=== PATIENT | female | born 1990 | race Caucasian/White ===

== ENCOUNTER 2019-02-17 19:56 | Inpatient (IN) | payer OTHER ==
[2019-02-17] MEDS ORDERED: PROMETHAZINE HCL 25 MG/1 ML VIAL IVPUSH PRN (20:21)
[2019-02-17] MEDS ORDERED: BUTORPHANOL TARTRATE 1 MG/ML VIAL IVPB ONE (20:21)
[2019-02-17] MEDS ORDERED: AMPICILLIN - 2 GM in SODIUM CHLORIDE 100 ML IVPB ONE (20:21)
--- NOTE | 2019-02-17 20:27 | HP ---
Past Medical History - Admission Chief Complaint: IOL for postdates History of Present Illness: 29yo @ 41.0wks here for IOL for postdates Mild ctx. No VB/LOF. +FM Of note, sono 02/10 placed EFW at 8lbs 13oz, pt declined elective PLTCS PNC @ [address] Preg c/b obesity, GBS positive. History Source: Patient - Past Medical History ...: 1 ... Weeks Gestation by Dates: 41.0 ...EDC by Dates: 02/09/19 - Past Surgical History Past Surgical History: Yes: None Hx Myomectomy: No Hx Transabdominal Cerclage: No - Smoking History Smoking history: Never smoked - Alcohol/Substance Use Hx Alcohol Use: Yes (SOCIAL) History of Substance Use: reports: None - Social History Usual Living Arrangement: Yes: With Significant Other Do you think of yourself as: Straight/Heterosexual ADL: Independent History of Recent Travel: No Home Medications - Allergies Allergies/Adverse Reactions: Allergies Allergy/AdvReac Type Severity Reaction Status Date / Time No Known Allergies Allergy Verified 02/17/19 21:04 - Home Medications Home Medications: Ambulatory Orders Ferrous Sulfate 325 mg PO DAILY 02/17/19 Vitamins (Sjr) - 1 tab PO DAILY 02/17/19 Review of Systems - Review of Systems Constitutional: denies: No Symptoms, Chills, Diaphoresis, Fever, Lethargy, Loss of Appetite, Malaise, Night Sweats, Unintentional Wgt. Loss, Weakness, Other Cardiovascular: denies: No Symptoms, Chest Pain, Edema, Palpitations, Shortness of Breath, Other Respiratory: denies: No Symptoms, Cough, Exercise Intolerance, Hemoptysis, Orthopnea, PND, Snoring, SOB, SOB on Exertion, Wheezing, Other Gastrointestinal: denies: No Symptoms, Abdominal Pain, Bloating, Constipation, Diarrhea, Dysphagia, Indigestion, Melena, Nausea, Rectal Bleeding, Vomiting, Vomiting Blood, Other Physical Exam - Maternity Constitutional: Yes: Well Nourished, No Distress, Calm - Abdominal Exam/OB Number of Fetuses: Single Presentation: Vertex Contractions: Yes Regularity: Irregular Intensity: Unaware Monitor Mode: External Heart Rate Location: [facility] Category: I Accelerations: Non-Uniform Decelerations: Late - Vaginal Exam/OB Vaginal Bleediing: No Speculum Exam: No Dilatation (cm): 1 Effacement (%): 0 Amniotic Membrane Status: Intact Presentation: Vertex/Position Station: -3 Assessment/Plan 29yo @ 41.0wks by LMP/sono here for IOL for postdates Admit to L&D NPO, IVFs Cat II tracing with recurrent late decelerations Patient previously counseled regarding low likelihood of successful given suspected EFW ~9lbs, short stature and obesity, but still desired trial of labor. Recommended delivery, risks/benefits discussed. All questions answered , consent signed Benny Issa MD
[2019-02-17] MEDS ORDERED: ELECTROLYTE-148 SOLN 1,000 ML IV SCH ×2 (20:30→21:05)
[2019-02-17] MEDS ORDERED: ELECTROLYTE-148 SOLN 500 ML IV ONE (20:35)
[2019-02-17] MEDS ORDERED: CITRIC ACID/SODIUM CITRATE 30 ML UNIT-DOSE CUP PO ONE (20:35)
[2019-02-17 20:56] LABS: BASO % 0.5 % (0-2.0); EOS % 0.7 % (0-4.5); HEMATOCRIT 39.6 % (32.4-45.2); HEMOGLOBIN 14.3 GM/dL (10.7-15.3); LYMPH % 18.4 % (8-40); MCH 34.7 pg (25.7-33.7); MCHC 36.1 g/dl (32.0-36.0); MEAN CELL VOLUME 96.2 fl (80-96); MONO % 8.8 % (3.8-10.2); NEUT % 71.6 % (42.8-82.8); PLATELET COUNT 294 K/MM3 (134-434); RBC 4.12 M/mm3 (3.60-5.2); RDW 13.3 % (11.6-15.6); WHITE BLOOD COUNT 12.6 K/mm3 (4.0-10.0)
[2019-02-17 21:08] LABS: INR 0.95 (0.83-1.09); PROTHROMBIN TIME (PATIENT) 11.2 SEC (9.7-13.0)
[2019-02-17 21:10] LABS: ACTIVATED PTT 27.8 SECONDS (25.2-36.5)
[2019-02-17 21:13] LABS: CREATININE 0.5 mg/dL (0.55-1.3); POTASSIUM 4.1 mmol/L (3.5-5.1)
[2019-02-17 21:19] VITALS: BMI 44.3
[2019-02-17] MEDS ORDERED: ONDANSETRON 4 MG/2 ML VIAL IVPUSH PRN (21:35)
[2019-02-17] MEDS ORDERED: morphine SULFATE/PF 0.5 MG/ML (2cc Syringe - QUVA) ONE (21:45)
[2019-02-17] MEDS ORDERED: ePHEDrine SULFATE 50 MG/1 ML AMPULE ONE (22:13)
[2019-02-17] MEDS ORDERED: ceFAZolin SODIUM 1 GM VIAL ONE (22:13)
[2019-02-17] MEDS ORDERED: OXYTOCIN 10 UNITS/ML VIAL ONE (22:18)
[2019-02-17] MEDS: OXYTOCIN 20 UNITS in 0.9% NS 20 UNIT/1,000 ML INFUS.BAG IV SCH (22:20)
[2019-02-17] MEDS ORDERED: METHYLERGONOVINE MALEATE 0.2 MG/1 ML AMP IM PRN (22:53)
[2019-02-17] MEDS ORDERED: oxyCODONE HCL 5 MG TABLET PO PRN (22:53)
--- NOTE | 2019-02-17 22:53 | OP ---
Operative Note - Note: Operative Date: 02/17/19 Operation: Non Reassuring Heart Tracing Findings: VMI, SUSY position, nuchal x 1, meconium. Apgars 6/9. Weight pending Normal tubes and ovaries bilaterally Post-Operative Diagnosis: Same as Pre-op Surgeon: Lashell Issa Medical Customer Service Representative: James Turner Anesthesia: Spinal Estimated Blood Loss (mls): 500 Drains, Volume Out (mls): 100 (clear urine) Operative Report Dictated: Yes
[2019-02-18] MEDS ORDERED: AMPICILLIN - 1 GM in SODIUM CHLORIDE 100 ML IVPB SCH (00:21)
[2019-02-18] MEDS ORDERED: OXYTOCIN 20 UNITS in 0.9% NS 20 UNIT/1,000 ML INFUS.BAG IV ONE (00:36)
[2019-02-18] MEDS: IBUPROFEN 800 MG/8 ML IJ IVPB PRN ×3 (00:58→16:57)
--- NOTE | 2019-02-18 01:51 | OP ---
DATE OF OPERATION: 02/17/2019 PREOPERATIVE DIAGNOSIS: A 41-week , suspected macrosomia, nonreassuring heart tracing. POSTOPERATIVE DIAGNOSIS: A 41-week , suspected macrosomia, nonreassuring heart tracing. PROCEDURE: Primary low transverse section. ANESTHESIA: Spinal. SURGEON: Lashell Issa MD METAL PATTERNMAKER: KHAI Cook INTRAVENOUS FLUIDS: Per anesthesia record. ESTIMATED BLOOD LOSS: 500. URINE OUTPUT: 100 mL of clear urine at the end of the procedure. FINDINGS: Viable male , SUSY position, nuchal x1, meconium present. Apgars 6 and 9, weight pending. Normal tubes and ovaries bilaterally. COMPLICATIONS: None. CONDITION: Stable to the recovery room. NATURE OF PROCEDURE: After the appropriate consents were signed, patient was taken to the operating room. Spinal anesthesia was administered. She was placed in the supine position. The abdomen was prepped and draped in the normal sterile fashion. A Melvin catheter had been inserted prior to entering into the operating room. Timeout was performed confirming correct patient and procedure. A Pfannenstiel incision was made and carried through to the underlying layers until the fascia was nicked in the midline. The fascia was then extended laterally with Mike scissors. The inferior aspect of the fascia was grasped with Lulú clamps, tented upwards and the rectus muscles were dissected off bluntly and with the Mike scissors. Attention was then paid to the superior aspect, which was taken down in a similar fashion. Rectus muscles were bluntly in the midline. The peritoneum was entered bluntly. Bladder blade was inserted. The vesicouterine reflection was grasped, nicked in the midline, and bladder flap was created with Metzenbaum scissors and digitally. The bladder blade was then reinserted. The uterus was incised in the low transverse fashion. Meconium amniotic fluid was noted. The 's head was delivered without difficulty as was the remaining shoulders and body. The cord was clamped and cut. The infant was handed off to the awaiting pediatric staff. The placenta was then removed manually. Uterus was cleared of all clots and debris. The hysterotomy was closed in a single imbricating vertical layer with 1-0 Vicryl with good hemostasis. The adnexa were checked and noted to be normal bilaterally. The hysterotomy was reinspected and an area centrally was noted to be bleeding. This was made hemostatic with an additional [id number] suture with good hemostasis. The muscles were then closed with a 2-0 chromic. The fascia was closed with 0 Vicryl. The subcutaneous layer was closed with 2-0 plain and the skin was closed with 4-0 Biosyn. All sponge, lap, and needle counts were correct x3. The patient did receive Ancef at the start of the procedure. She was taken from the operating room to the recovery area in stable condition. MD EDDIE [id number]
[2019-02-18 08:15] LABS: BASO % 0.3 % (0-2.0); EOS % 0.1 % (0-4.5); HEMATOCRIT 37.1 % (32.4-45.2); HEMOGLOBIN 12.8 GM/dL (10.7-15.3); MCH 33.1 pg (25.7-33.7); MCHC 34.5 g/dl (32.0-36.0); MEAN PLT VOLUME 7.9 fl (7.5-11.1); MONO % 6.5 % (3.8-10.2); NEUT % 81.1 % (42.8-82.8); PLATELET COUNT 257 K/MM3 (134-434); RBC 3.86 M/mm3 (3.60-5.2); WHITE BLOOD COUNT 13.9 K/mm3 (4.0-10.0)
--- NOTE | 2019-02-18 08:47 | PN ---
Post Progress Note - Subjective Subjective: Pain controlled, no fevers. Voiding via orta. Not ambulating. Post Day: 1 Type of Delivery: Primary C/S Vital Signs: Vital Signs Temperature 97.9 F 02/18/19 05:48 Pulse Rate 72 02/18/19 05:48 Respiratory Rate 18 02/18/19 06:00 Blood Pressure 109/60 02/18/19 05:48 O2 Sat by Pulse Oximetry (%) 98 02/18/19 00:15 Uterus: Yes: Fundus below umbilicus Incision: Yes: Dressing dry and intact, Sutures intact Abdomen/GI: Yes: Abdomen soft, Tolerating PO Lochia: Yes: Rubra Lochia, amount: Small Extremities: Yes: Calves non-tender Perineum: Yes: Intact - Labs Labs: CBC WBC 13.9 K/mm3 (4.0-10.0) H 02/18/19 07:20 RBC 3.86 M/mm3 (3.60-5.2) 02/18/19 07:20 Hgb 12.8 GM/dL (10.7-15.3) 02/18/19 07:20 Hct 37.1 % (32.4-45.2) 02/18/19 07:20 MCV 96.0 fl (80-96) 02/18/19 07:20 MCH 33.1 pg (25.7-33.7) 02/18/19 07:20 MCHC 34.5 g/dl (32.0-36.0) 02/18/19 07:20 RDW 13.0 % (11.6-15.6) 02/18/19 07:20 Plt Count 257 K/MM3 (134-434) 02/18/19 07:20 MPV 7.9 fl (7.5-11.1) 02/18/19 07:20 Absolute Neuts (auto) 11.3 K/mm3 (1.5-8.0) H 02/18/19 07:20 Neutrophils % 81.1 % (42.8-82.8) 02/18/19 07:20 Lymphocytes % 12.0 % (8-40) D 02/18/19 07:20 Monocytes % 6.5 % (3.8-10.2) 02/18/19 07:20 Eosinophils % 0.1 % (0-4.5) D 02/18/19 07:20 Basophils % 0.3 % (0-2.0) 02/18/19 07:20 Nucleated RBC % 0 % (0-0) 02/18/19 07:20 Assessment/Plan 29yo s/p PLTCS, POD#1 Routine PP care PO pain control today Orta out today Labs pending Anticipate d/c to home POD#4 Benny Issa MD
[2019-02-18] MEDS: OXYTOCIN 20 UNITS in 0.9% NS 20 UNIT/1,000 ML INFUS.BAG IV SCH ×2 (09:42→18:26)
[2019-02-18] MEDS: PRENATAL VITAMINS W/ FOLIC ACID TABLET (FP) PO SCH (09:43)
--- NOTE | 2019-02-18 10:24 | PN ---
Progress Note (short form) - Note Progress Note: Anesthesia POD#1 S/P under spinal A and Duramorph VSS,had N/V overnight and relieved by taking anti-emitic. Now she can tolerate oral food. Pain is bearable. Legs are recovered. Frances Romo MD.
[2019-02-18] MEDS: SIMETHICONE 80 MG TAB.CHEW (FP) PO PRN (23:10)
[2019-02-18] MEDS: ACETAMINOPHEN 325 MG TABLET (FP) PO PRN (23:10)
[2019-02-18] MEDS: IBUPROFEN 600 MG TABLET (FP) PO PRN (23:10)
[2019-02-18] MEDS: BISACODYL 10 MG SUPP.RECT RC PRN (23:11)
--- NOTE | 2019-02-19 07:58 | PN ---
Post Progress Note - Subjective Subjective: Ambulating, breast feeding, tolerating PO, lochia decreased. Type of Delivery: Primary C/S Vital Signs: Vital Signs Temperature 98.4 F 02/18/19 21:37 Pulse Rate 72 02/18/19 21:37 Respiratory Rate 18 02/18/19 21:38 Blood Pressure 114/79 02/18/19 21:37 O2 Sat by Pulse Oximetry (%) 98 02/18/19 00:15 Breast Exam: Yes: Other (deferred) Uterus: Yes: Fundus Firm Incision: Yes: Dressing dry and intact, Sutures intact Abdomen/GI: Yes: Abdomen soft Lochia, amount: Moderate Extremities: Yes: Calves non-tender Perineum: Yes: Intact Activity: Ambulating - Labs Labs: CBC WBC 13.9 K/mm3 (4.0-10.0) H 02/18/19 07:20 RBC 3.86 M/mm3 (3.60-5.2) 02/18/19 07:20 Hgb 12.8 GM/dL (10.7-15.3) 02/18/19 07:20 Hct 37.1 % (32.4-45.2) 02/18/19 07:20 MCV 96.0 fl (80-96) 02/18/19 07:20 MCH 33.1 pg (25.7-33.7) 02/18/19 07:20 MCHC 34.5 g/dl (32.0-36.0) 02/18/19 07:20 RDW 13.0 % (11.6-15.6) 02/18/19 07:20 Plt Count 257 K/MM3 (134-434) 02/18/19 07:20 MPV 7.9 fl (7.5-11.1) 02/18/19 07:20 Absolute Neuts (auto) 11.3 K/mm3 (1.5-8.0) H 02/18/19 07:20 Neutrophils % 81.1 % (42.8-82.8) 02/18/19 07:20 Lymphocytes % 12.0 % (8-40) D 02/18/19 07:20 Monocytes % 6.5 % (3.8-10.2) 02/18/19 07:20 Eosinophils % 0.1 % (0-4.5) D 02/18/19 07:20 Basophils % 0.3 % (0-2.0) 02/18/19 07:20 Nucleated RBC % 0 % (0-0) 02/18/19 07:20 Assessment/Plan POD # 2 in stable condition. Dressing removed and PP/post-op precautions discussed. -Continue inpatient care -Anticipate D/C home tomorrow
[2019-02-19] MEDS: ACETAMINOPHEN 325 MG TABLET (FP) PO PRN ×3 (09:44→20:02)
[2019-02-19] MEDS: IBUPROFEN 600 MG TABLET (FP) PO PRN ×3 (09:45→20:01)
[2019-02-19] MEDS: PRENATAL VITAMINS W/ FOLIC ACID TABLET (FP) PO SCH (09:47)
[2019-02-19] MEDS: ENOXAPARIN NA (PORCINE) 40 MG/0.4 ML DISP.SYRIN SQ SCH (12:32)
[2019-02-19] MEDS: SIMETHICONE 80 MG TAB.CHEW (FP) PO PRN ×2 (15:08→20:01)
[2019-02-19] MEDS: BISACODYL 10 MG SUPP.RECT RC PRN (21:36)
[2019-02-20 07:19] LABS: BASO % 0.4 % (0-2.0); EOS % 0.9 % (0-4.5); HEMATOCRIT 35.6 % (32.4-45.2); HEMOGLOBIN 12.3 GM/dL (10.7-15.3); LYMPH % 25.8 % (8-40); MCH 33.3 pg (25.7-33.7); MCHC 34.5 g/dl (32.0-36.0); MEAN CELL VOLUME 96.6 fl (80-96); MEAN PLT VOLUME 7.2 fl (7.5-11.1); MONO % 6.7 % (3.8-10.2); NEUT % 66.2 % (42.8-82.8); PLATELET COUNT 297 K/MM3 (134-434); RBC 3.69 M/mm3 (3.60-5.2); WHITE BLOOD COUNT 9.1 K/mm3 (4.0-10.0)
--- NOTE | 2019-02-20 08:06 | PN ---
Post Progress Note - Subjective Subjective: c/o pain max scale 8/10 c/ gaseous discomfort bm done Post Day: 3 Type of Delivery: Primary C/S Vital Signs: Vital Signs Temperature 97.8 F 02/19/19 20:33 Pulse Rate 81 02/19/19 20:33 Respiratory Rate 18 02/19/19 20:33 Blood Pressure 121/77 02/19/19 20:33 O2 Sat by Pulse Oximetry (%) 98 02/18/19 00:15 Breast Exam: Yes: Soft, Other (attempting BF ). No: Engorged Uterus: Yes: Fundus Firm, Fundus below umbilicus, Non-tender Incision: Yes: Sutures intact (intradermal , steristrips in situ ). No: Redness , Oozing Abdomen/GI: Yes: Abdomen soft, Abdominal Distention (obese abdomen ), Passing flatus, Tolerating PO (diet). No: Tender Lochia: Yes: Rubra Lochia, amount: Moderate Extremities: Yes: Calves non-tender Perineum: Yes: Intact Activity: Ambulating - Labs Labs: CBC WBC 9.1 K/mm3 (4.0-10.0) 02/20/19 07:05 RBC 3.69 M/mm3 (3.60-5.2) 02/20/19 07:05 Hgb 12.3 GM/dL (10.7-15.3) 02/20/19 07:05 Hct 35.6 % (32.4-45.2) 02/20/19 07:05 MCV 96.6 fl (80-96) H 02/20/19 07:05 MCH 33.3 pg (25.7-33.7) 02/20/19 07:05 MCHC 34.5 g/dl (32.0-36.0) 02/20/19 07:05 RDW 13.0 % (11.6-15.6) 02/20/19 07:05 Plt Count 297 K/MM3 (134-434) 02/20/19 07:05 MPV 7.2 fl (7.5-11.1) L 02/20/19 07:05 Absolute Neuts (auto) 6.0 K/mm3 (1.5-8.0) 02/20/19 07:05 Neutrophils % 66.2 % (42.8-82.8) 02/20/19 07:05 Lymphocytes % 25.8 % (8-40) D 02/20/19 07:05 Monocytes % 6.7 % (3.8-10.2) 02/20/19 07:05 Eosinophils % 0.9 % (0-4.5) D 02/20/19 07:05 Basophils % 0.4 % (0-2.0) 02/20/19 07:05 Nucleated RBC % 0 % (0-0) 02/20/19 07:05 Problem List - Problems (1) examination following delivery Code(s): Z39.2 - ENCOUNTER FOR ROUTINE FOLLOW-UP Assessment/Plan stable plan ct po care
[2019-02-20] MEDS: IBUPROFEN 600 MG TABLET (FP) PO PRN ×3 (08:11→21:45)
[2019-02-20] MEDS: ACETAMINOPHEN 325 MG TABLET (FP) PO PRN ×3 (08:12→21:45)
[2019-02-20] MEDS: SIMETHICONE 80 MG TAB.CHEW (FP) PO PRN ×3 (08:13→21:45)
[2019-02-20] MEDS: ENOXAPARIN NA (PORCINE) 40 MG/0.4 ML DISP.SYRIN SQ SCH (09:43)
[2019-02-20] MEDS: PRENATAL VITAMINS W/ FOLIC ACID TABLET (FP) PO SCH (09:43)
--- NOTE | 2019-02-20 16:28 | PATH ---
Surgical Pathology Report Patient Name: AMBAR COLMENARES [facility]. Rec. #: [id number] /Age/Gender: 1990 (Age: 29) / F Account: [id number] Location: [facility] OBS/ACCOUNTING OFFICER Taken: 02/17/2019 Received: 02/18/2019 Reported: 02/20/2019 Physicians: Lashell Issa Specimen(s) Received PLACENTA Clinical History , 41 weeks gestation, nonreassuring heart rate Final Diagnosis PLACENTA: THIRD TRIMESTER PLACENTA WITH FOCAL CALCIFICATION. TRIVASCULAR CORD. MEMBRANES WITH NO DIAGNOSTIC ABNORMALITIES. Electronically Signed Duane Arcos M.D. Gross Description The specimen is received fresh labeled placenta and is a 506 gram, 19.0 x 15.0 x 2.4 cm. placenta with attached membranes and umbilical cord. The attached membranes are sweet green, meconium stained, translucent with focal opacities and insert marginally. The umbilical cord measures 16 cm. in length and averages 0.8 cm. in diameter. The cord inserts eccentrically, 1 cm. to the nearest margin. No true knots or strictures are identified. Cut surface of the umbilical cord reveals 3 vessels. The surface is clark green, meconium stained with minimal fibrin deposition and appropriate caliber vessels. The maternal surface is red-brown with focal defects. Sectioning reveals red-brown, spongy parenchyma. No lesions are identified. Business Continuity Director sections are submitted in three cassettes as follows: 1- membrane rolls and umbilical cord; 2-3- full thickness sections of placenta. /02/19/2019 [facility]02/19/2019
[2019-02-21] MEDS: ACETAMINOPHEN 325 MG TABLET (FP) PO PRN ×2 (02:15→09:07)
[2019-02-21] MEDS: IBUPROFEN 600 MG TABLET (FP) PO PRN ×2 (02:16→09:06)
[2019-02-21] MEDS: SIMETHICONE 80 MG TAB.CHEW (FP) PO PRN (09:07)
[2019-02-21] MEDS: PRENATAL VITAMINS W/ FOLIC ACID TABLET (FP) PO SCH (09:07)
--- NOTE | 2019-02-21 09:14 | DS ---
Physical Examination Vital Signs: Vital Signs Temperature 98 F 02/20/19 22:00 Pulse Rate 74 02/20/19 22:00 Respiratory Rate 18 02/20/19 22:00 Blood Pressure 128/76 02/20/19 22:00 O2 Sat by Pulse Oximetry (%) 98 02/18/19 00:15 Constitutional: Yes: Well Nourished, No Distress, Calm Eyes: Yes: WNL, Conjunctiva Clear, EOM Intact HENT: Yes: WNL, Atraumatic, Normocephalic Neck: Yes: WNL, Supple, Trachea Midline Cardiovascular: Yes: WNL, Regular Rate and Rhythm Respiratory: Yes: WNL, Regular, CTA Bilaterally Gastrointestinal: Yes: WNL, Normal Bowel Sounds Musculoskeletal: Yes: WNL Extremities: Yes: WNL Edema: No Integumentary: Yes: WNL Neurological: Yes: WNL, Alert, Oriented ...Motor Strength: WNL Psychiatric: Yes: WNL Labs: CBC, BMP 02/20/19 07:05 02/17/19 20:40 Discharge Summary Problems reviewed: Yes Current Active Problems 41 weeks gestation of (Acute) examination following delivery (Acute) Procedures: Principal: Primary Hospital Course: Patient presented for an induction of labor for postdates Tracing was Cat II prior to induction Decision made to proceed with PLTCS She had an uncomplicated postoperative course She was discharged home on POD#4 M. MD Maegan Condition: Stable - Instructions Diet, Activity, Other Instructions: Regular Diet Referrals: Lashell Issa MD [Staff Physician] - Disposition: HOME - Home Medications Comprehensive Discharge Medication List: Ambulatory Orders Ferrous Sulfate 325 mg PO DAILY 02/17/19 Vitamins (Sjr) - 1 tab PO DAILY 02/17/19 Ibuprofen 600 mg PO Q6H PRN #30 tablet 02/18/19 Oxycodone HCl/Acetaminophen [Percocet 5-325 mg Tablet -] 1 - 2 tab PO Q6H PRN # 20 tab MDD 4 02/18/19
[2019-02-21 11:07] VITALS: BP 118/81; PULSE 80; TEMP 97.6
[2019-02-21] MEDS: ENOXAPARIN NA (PORCINE) 40 MG/0.4 ML DISP.SYRIN SQ SCH (11:29)
== END 2019-02-21 17:50 | disposition home or self-care (01) | DRG 540 ==
LOC: JLDR 19:56 → J3W 02-18 00:30
PROVIDERS: ADMIT Obstetrics & Gynecology; ATTEND Obstetrics & Gynecology
PROC: 10D00Z1 Extraction of Products of Conception, Low, Open Approach (ICD-10-PCS; principal; 2019-02-17)
DX: O48.0 Post-term pregnancy (principal); O36.63X0 Maternal care for excessive fetal growth, third trimester, not applicable or unspecified; O76 Abnormality in fetal heart rate and rhythm complicating labor and delivery; O77.0 Labor and delivery complicated by meconium in amniotic fluid; O69.81X0 Labor and delivery complicated by cord around neck, without compression, not applicable or unspecified; Z3A.41 41 weeks gestation of pregnancy; Z37.0 Single live birth
CPT/HCPCS: 36415; 36600; 80048; 82803; 85025; 85610; 85730; 86593; 86850; 86900; 86901; 88307-TC